=== PATIENT | male | born 1955 | race Caucasian/White ===

== ENCOUNTER 2019-10-03 08:31 | Outpatient (CLI) | payer MEDICARE, SELFPAY ==
[2019-10-03 09:12] LABS: Hemoglobin A1C 5.9 % (<5.7)
[2019-10-03 09:15] LABS: Blood Urea Nitrogen 13 mg/dL (9-20); Calcium 8.9 mg/dL (8.4-10.2); Carbon Dioxide 27 mmol/L (22-30); Chloride 103 mmol/L (98-107); Cholesterol 193 mg/dL (0-200); Estimated Glomerular Filt Rate > 60; Glucose 124 mg/dL (75-110); HDL Direct 48 mg/dL; Sodium 136 mmol/L (137-145); Triglycerides 76 mg/dL (<150)
[2019-10-03 09:26] LABS: LDL Cholesterol Direct 132 mg/dL
[2019-10-06 03:47] LABS: Homocysteine 9.9 umol/L (<11.4)
[2019-10-06 21:01] LABS: Vitamin D 1,25 (OH)2 Total 40 pg/mL (18-72); Vitamin D2 1,25 (OH)2 <8 pg/mL; Vitamin D3 1,25 (OH)2 40 pg/mL
== END 2019-10-03 08:32 | disposition home or self-care (01) ==
PROVIDERS: PCP Internal Medicine; Visit Provider Internal Medicine
DX: Z79.899 Other long term (current) drug therapy (principal); E55.9 Vitamin D deficiency, unspecified; R79.89 Other specified abnormal findings of blood chemistry; E78.5 Hyperlipidemia, unspecified
CPT/HCPCS: 36415; 80048; 80061; 82652; 83036; 83090

== ENCOUNTER 2021-02-02 12:52 | Outpatient (CLI) | payer MEDICARE, SELFPAY ==
--- NOTE | ~2021-02-02 | CT_ITS ---
EXAMINATION:CT diagnostic chest wo con DATE: 02/02/2021 13:14 INDICATION: Pleural plaque without asbestos. TECHNIQUE: Computed tomography (CT) of the chest was performed without intravenous contrast. Automate d exposure control and iterative reconstruction technique were employed. The dose-length product (DLP ) was 211.14 mGy-cm. COMPARISON: Chest CT 02/20/2018, 07/25/17, 05/27/11 FINDINGS: There is mild scarring at the lung apices. There are chronic centrilobular nodules and tree -in-bud opacities in left upper lobe. There is a staple line in left lower lobe. There are peripheral groundglass opacities in right lower lobe, likely atelectasis. No pleural effusion. The heart size i s normal. No pericardial effusion. There is a small sliding hiatal hernia. There are changes of magnolia cystectomy. There is severe cervical spondylosis and mild thoracic spondylosis. IMPRESSION: 1. Chronic findings of mild infection in left lung upper lobe. 2. Mild emphysema. 3. Small sliding hiatal hernia. Reviewed, dictated and finalized at location A.
== END 2021-02-02 12:53 | disposition home or self-care (01) ==
LOC: ANHIMG 12:55
PROVIDERS: PCP Internal Medicine; Visit Provider Internal Medicine
DX: R91.8 Other nonspecific abnormal finding of lung field (principal); J43.9 Emphysema, unspecified; K44.9 Diaphragmatic hernia without obstruction or gangrene
CPT/HCPCS: 71250

== ENCOUNTER 2021-11-11 12:25 | Outpatient (CLI) | payer MEDICARE, SELFPAY ==
--- NOTE | ~2021-11-11 | XR_ITS ---
XR chest 2V DATE: 11/11/2021 12:49 INDICATION: Pneumonia TECHNIQUE: PA and lateral views COMPARISON: 02/02/2021 CT chest 05/23/2017 two-view chest FINDINGS: There is left basilar infiltrate and/or atelectasis. There is minimal blunting of the costo phrenic angles. Small pleural effusions are not excluded. Heart size appears within normal range. No hilar or mediastinal enlargement. Mild bilateral apical capping. Air-fluid levels are noted in the small bowel and colon. Status post cholecystectomy. IMPRESSION: Left basilar infiltrate and/atelectasis Status post cholecystectomy Air-fluid levels are noted in the small bowel and colon. Reviewed, dictated and finalized at location B.
== END 2021-11-11 12:26 | disposition home or self-care (01) ==
PROVIDERS: PCP Internal Medicine; Visit Provider Internal Medicine
DX: J18.9 Pneumonia, unspecified organism (principal); R05.9 Cough, unspecified; Z90.49 Acquired absence of other specified parts of digestive tract; R91.8 Other nonspecific abnormal finding of lung field
CPT/HCPCS: 71046

== ENCOUNTER 2021-11-17 10:48 | Outpatient (CLI) | payer MEDICARE, SELFPAY ==
--- NOTE | ~2021-11-17 | XR_ITS ---
XR chest 2V 11/17/2021 11:03 Indication: Pneumonia. Procedure: 2 view chest Comparison: 11/11/2021 Findings: Heart size normal. Left basilar airspace disease may represent atelectasis, scarring or pne umonia. No significant change. No significant effusion. No pneumothorax. No acute osseous abnormality . Impression: 1: Stable left basilar airspace disease may represent atelectasis/scarring or pneumonia. Reviewed, dictated and finalized at location A. Impression: 1: Stable left basilar airspace disease may represent atelectasis/scarring or p neumonia.
== END 2021-11-17 10:49 | disposition home or self-care (01) ==
PROVIDERS: PCP Internal Medicine; Visit Provider Internal Medicine
DX: J18.9 Pneumonia, unspecified organism (principal); R05.9 Cough, unspecified; R06.00 Dyspnea, unspecified
CPT/HCPCS: 71046

== ENCOUNTER 2022-05-05 10:39 | Outpatient (CLI) | payer MEDICARE, SELFPAY ==
--- NOTE | ~2022-05-05 | XR_ITS ---
EXAMINATION: XR abdomen/kub 1V INDICATION: Unspecified renal colic TECHNIQUE: Supine views of the abdomen were obtained on 2 radiographs. COMPARISON: 10/05/2010 FINDINGS: A 6 mm stone projects in the expected location of the right mid ureter. There are stones me asuring 10 mm and 5 mm in the right kidney. There are punctate stones of the left kidney lower pole. The bowel gas pattern is normal. There is moderate osteoarthritis of the hips. IMPRESSION: 1. 6 mm stone projecting in the expected location of the right mid ureter. 2. Bilateral nephrolithiasis. Reviewed, dictated and finalized at location B. 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
[2022-05-05 11:14] LABS: Appearance Urine Clear (Clear); Color Urine Yellow (Yellow); Glucose Urine UA Negative (Negative); Ketones Urine Negative (Negative); Protein Urine 1+ mg/dL (Negative); Specific Grav Ur 1.025 (1.001-1.035)
[2022-05-05 11:15] LABS: Bilirubin Urine Negative (Negative); Blood Urine 2+ (Negative); Leukocyte Esterase Ur 1+ LEU/UL (Negative); Nitrate Urine Negative (Negative); Urobilinogen Urine 0.2 mg/dL (<2.0)
[2022-05-05 11:22] LABS: Bacteria Urine Trace /hpf; Mucus Urine Few /lpf; RBC Urine 21-50 /hpf (0-2); Squamous Epithelial Cell Urine Rare /hpf (Few); WBC Urine 31-50 /hpf
[2022-05-05 11:31] LABS: Add Urine Microscopic? YES
== END 2022-05-05 10:40 | disposition home or self-care (01) ==
LOC: ANHIMG 10:42
PROVIDERS: PCP Internal Medicine; Visit Provider Internal Medicine
DX: N23 Unspecified renal colic (principal); N20.2 Calculus of kidney with calculus of ureter
CPT/HCPCS: 74018; 81001; 87086

== ENCOUNTER 2022-05-12 12:04 | Outpatient (CLI) | payer MEDICARE, SELFPAY ==
--- NOTE | ~2022-05-12 | CT_ITS ---
EXAMINATION: CT abdomen pelvis wo con DATE: 05/12/2022 12:29 INDICATION: Nausea, vomiting, diarrhea. History of kidney stones. History of prostate cancer. TECHNIQUE: Computed tomography (CT) of the abdomen and pelvis was performed without intravenous contr ast. Automated exposure control and iterative reconstruction technique were employed. Exam dose: 220 .11 mGy-cm total exam DLP. COMPARISON: 05/12/2022 KUB FINDINGS: There is a suture line in the left lower lobe. The lung bases are clear of infiltrate or co nsolidation. Heart size is within normal range. No pericardial or pleural effusion. Small sliding hiatal hernia. Status post cholecystectomy. No hepatic, splenic, pancreatic or adrenal space-occupying mass lesion. No bile duct or pancreatic duct dilatation. Multiple probable right renal cyst. This is a limited non contrast examination. There are several contiguous lower pole right renal calculi measuring approximately 5-6 mm. There is a punctate mid right renal nonobstructing calculus. There is an approximately 3.5 x 5.2 mm right ureteral calculus at the L4 level with minimal proximal hydronephrosis. There are 2 lower pole left renal calculi measuring approximately 3-4 mm. There is a 6 x 9 mm obstructing calculus of the left ureter at the L5 level, with moderately prominen t proximal left hydroureteronephrosis. The prostate is mildly enlarged. The urinary bladder is unremarkable. There is mild atherosclerotic calcification and normal caliber of the abdominal aorta. No intraperito stevo or retroperitoneal or pelvic mass lesion or adenopathy or ascites. There is diverticulosis of the colon. No bowel obstruction, bowel wall thickening, pneumatosis or int raperitoneal free air is detected. Small fat-containing umbilical hernia. No suspicious osteolytic or osteoblastic lesions are noted. IMPRESSION: Bilateral ureteral obstructing calculi with mild right and moderately prominent left hyd ronephrosis Bilateral nonobstructive nephrolithiasis Probable right renal cysts Status post cholecystectomy Small sliding hiatal hernia Diverticulosis of the colon Reviewed, dictated and finalized at Location A. Reviewed, dictated and finalized at location B. ER CUTTER IMPRESSION: Bilateral ureteral obstructing calculi with mild right and moderat kristen prominent left hydronephrosis Bilateral nonobstructive nephrolithiasis Probable right renal cysts Status post cholecystectomy Small sliding hiatal hernia Diverticulosis of the colon
--- NOTE | ~2022-05-12 | XR_ITS ---
XR abdomen/kub 1V DATE: 05/12/2022 12:24 INDICATION: Kidney calculi TECHNIQUE: AP projection, 2 views COMPARISON: 05/05/2022 KUB 05/12/2022 CT abdomen pelvis FINDINGS: There is an approximately 5 mm calcified calculus of the right ureter at the L4 level. Ther e are several approximately 4-5 mm calcified calculi of the lower pole the right kidney. There are 2 small faint calcifications overlying the lower pole of the left kidney consistent with le ft nephrolithiasis. Approximately 5.5 x 13 mm calcified calculus of the left ureter is noted at the L5 level. The psoas shadows are intact. No visceromegaly is evident. There is no evidence of bowel obstruction. Surgical clips, right upper quadrant, consistent with cholecystectomy. IMPRESSION: Bilateral ureteral calcified calculi Bilateral nephrolithiasis Status post cholecystectomy Reviewed, dictated and finalized at Location A. Reviewed, dictated and finalized at location B. 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
== END 2022-05-12 12:05 | disposition home or self-care (01) ==
PROVIDERS: PCP Internal Medicine; Visit Provider Urology
DX: N20.2 Calculus of kidney with calculus of ureter (principal); Z90.49 Acquired absence of other specified parts of digestive tract; K57.30 Diverticulosis of large intestine without perforation or abscess without bleeding; K44.9 Diaphragmatic hernia without obstruction or gangrene; N28.1 Cyst of kidney, acquired
CPT/HCPCS: 74018; 74176

== ENCOUNTER 2022-05-14 02:13 | Day surgery (SDC) | payer MEDICARE, SELFPAY ==
[2022-05-13 08:35] VITALS: BMI 27.1
--- NOTE | 2022-05-13 08:41 | PC.NURSE ---
Report to the Outpatient Waiting Room, entrance under the green pavilion located off [facility], at time 0930 on date 05/14/22. Planned Procedure Time: 1130. Time changes happen often and if your time is changed the preop area will call you the afternoon before. - You and your visitor will be asked to self-screen and do not enter if you have any COVID symptoms. - Only one visitor is requested with a max of two and NO children visitors are allowed at this time. - The patient visitor may be requested to leave or wait in car when not with patient due to distancing restrictions. - A mask is optional within the hospital. Patients may have clear liquids (water, carbonated beverages, clear teas, apple juice) until 3 hours prior to surgery with a maximum of 20 ounces. - No food from midnight until time of surgery Take the following medications with a SIP of water the morning of surgery: NONE Medications to discontinue per physician: VITAMINS/SUPPLEMENTS Date to take last dose: NO MORE UNTIL AFTER SURGERY Please no make-up, nail telugu, hairspray, perfume, deodorant, or body powder the day of surgery. No jewelry (including any body piercings) or valuables the day of surgery, leave them at home. Please take a shower or bath the night before, or the morning of, surgery with an antibacterial soap. Wear comfortable, loose fitting clothing. - Jewelry must be removed prior to entering the operating room. Rings and piercings that are not removed may be cut off. - The hospital will not accept responsibility for valuables. - Please leave all valuables, including medications, at home the day of surgery. If you are going home after surgery, a licensed newspaper delivery driver must drive you home. - NO public transportation without another adult if you receive anesthesia. - We recommend that an adult stay with you for 24 hours following discharge. - We also recommend that you do not drive, make important decision, drink alcoholic beverages, or take any drugs that were not prescribed by your health care provider for at least 24 hours after your discharge time. Follow any additional instructions given to you from your surgeon. If you or anyone in your household have experienced Covid symptoms in the past week, please notify your surgeon or the nurse liaison at the phone number below for possible testing. Telephone instructions given to PT - CHILANGO PADILLA and asked if any additional questions and then verbalized understanding. Patient advised to call surgeon office or pre surgery nurse liaison [phone] if any additional questions.
[2022-05-14] VITALS (9 sets, daily range): BP systolic 122–174; BP diastolic 69–97; PULSE 57–81; RESP 12–16; TEMP 36.4–36.8; O2SAT 97–100
--- NOTE | ~2022-05-14 | XR_ITS ---
EXAMINATION: XR retrograde pyelo w/stent BI DATE: 05/14/2022 13:10 INDICATION: Bilateral ureteral stones. TECHNIQUE: 7 intraoperative fluoroscopic views of the abdomen and pelvis were obtained. I was not pre sent. Fluoroscopy exposure time was 34 seconds. COMPARISON: CT abdomen and pelvis 05/12/2022 FINDINGS: The skin former image demonstrates stones in both proximal ureters. Bilateral retrograde pyelogra ms demonstrate mild left hydronephrosis. The final images demonstrate bilateral internal ureteral herminia nts in expected positions. IMPRESSION: 1. Bilateral ureteral stones status post removal and placement of bilateral internal ureteral stents in expected positions. Reviewed, dictated and finalized at location A. 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 Bilateral ureteral stones status post removal and placement of bilateral int ernal ureteral stents in expected positions.
--- NOTE | 2022-05-14 11:17 | ECG_ITS ---
Measurements Intervals Pitman Rate: 60 P: 36 OR: 155 QRS: 2 QRSD: 91 T: 29 QT: 403 QTc: 404 Interpretive Statements SINUS RHYTHM NORMAL ECG NO PREVIOUS ECG AVAILABLE FOR COMPARISON Electronically Signed On 05-14-2022 12:06:33 SOCK DRIER by Valerio Lange D.O.
--- NOTE | 2022-05-14 11:38 | WPDHPUPDATE1 ---
History and Physical Update Update Date/Time: 05/14/22 11:38 History and Physical has been reviewed, including an updated exam of the patient. There are NO changes in the patient's condition. Risks, benefits, and alternatives have been discussed and questions answered. Patient agrees to proceed with procedure. Proceed with cysto, bilateral retrograde, bilateral ureteroscopy with laser, bilateral stent placement
--- NOTE | 2022-05-14 11:52 | WPDANESEPPF ---
Anes - Initial Pre Proc Eval Procedure: Operation Date: 05/14/22 13:00 Proposed Procedures p Cystoscopy, Bilateral Ureteroscopy, Bilateral Retrograde Pyelogram, Holmium Laser Procedure, Bilateral Ureteral Stent Placement - Jarred Lyon MD Date/Time: 05/14/22 11:52 Surgeon: Jarred Lyon MD Pre Op Diagnosis: bilat ureteral stones Patient Data Age: 66 Gender: M Height: 1.8 m Weight: 87.7 kg Last Vital Signs Temp 36.8 C 05/14/22 11:45 Pulse 64 05/14/22 11:45 Resp 14 05/14/22 11:45 BP 152/73 H 05/14/22 11:45 Pulse Ox 100 05/14/22 11:45 O2 Del Method Room Air 05/14/22 11:45 Allergies Allergy/AdvReac Type Severity Reaction Status Date / Time Iodine and Iodide Containing Allergy Unknown Anaphylaxis Verified 05/14/22 11:52 Produc Home Medications Medication Instructions Recorded Confirmed Type mecobalamin (vitamin B12) 1,000 1,000 mcg sublingual DAILY 07/17/19 05/13/22 History mcg disintegrating tablet,sublingual cholecalciferol (vitamin D3) 25 25 mcg PO DAILY 10/02/19 05/13/22 History mcg (1,000 unit) capsule omega-3 fatty acids 1,000 mg 2,000 mg PO BID 10/09/19 05/13/22 History capsule (Fish Oil Concentrate) fluticasone propionate 50 2 spray intranasal DAILY #16 grams 11/03/20 05/13/22 Rx mcg/actuation nasal spray,suspension rosuvastatin 10 mg tablet See Rx Instructions .Route 12/18/21 05/13/22 Rx .COMPLEX #100 tabs famotidine 40 mg tablet See Rx Instructions .Route 04/23/22 05/13/22 Rx .COMPLEX #100 tabs folic acid 1 mg tablet See Rx Instructions .Route 04/23/22 05/13/22 Rx .COMPLEX #100 tabs Patient hx anesthesia problems: none Family hx anesthesia problems: none Results Review: All pre-operative results and documents have been reviewed as part of the pre-operative evaluation. [facility] Past Medical History Medical History BMI 27.0-27.9,adult BMI 28.0-28.9,adult Dysphagia Elevated PSA Elevated serum homocysteine level Encounter for Medicare annual wellness exam Encounter for preventive health examination Encounter for routine adult health examination with abnormal findings Encounter for routine adult health examination without abnormal findings Encounter for special screening examination for neoplasm of prostate Follow up GERD (gastroesophageal reflux disease) Hiatal hernia History of kidney stones History of prostate cancer Hospital discharge follow-up Hx of colonic polyps Impingement syndrome of left shoulder Left foot pain Left knee DJD 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 VIK (obstructive sleep apnea) Prediabetes RLS (restless legs syndrome) Shortness of breath on exertion Sinus congestion Vitamin D deficiency Family History Family History Mother Family history of diabetes mellitus in first degree relative Family history of malignant neoplasm of urinary bladder Father Family history of heart disease in male family member before age 55 Social History Social History (Updated 04/13/22 @ 07:34 by Martita Leung [facility]) Smoking status: Never smoker Second hand tobacco smoke exposure: No Alcohol intake: never Substance use: never Substance use type: does not use Lack of Transportation: No Lack of Food: Never True Current Housing: I Have Housing Concerned About Future Housing: No Difficulty Paying Gas/Electric Bills: No Difficulty Paying for Meds: No Currently Unemployed: No Education: Associate Degree Difficulty w/ Childcare or Family Care: No Living arrangements: with family Occupation/Education: retired Gender identity (if verbalized by the patient): Male Spiritual care concerns: No Anes - Eval Final PreProcedure Day of Procedure 05/14/22 11:52 Patient weight: overweight Heart: regular rate and rhythm Lungs: clear to auscultation Airway: Mallampati sca
[2022-05-14] MEDS: LACTATED RINGERS 1,000 ML 30 ML IV CONT ×2 (11:56→13:15)
[2022-05-14] MEDS: ceFAZolin 2 GM/D5W 50 ML 2 GM/50 ML BAG IVPB (11:58)
[2022-05-14] MEDS: LIDOCAINE HCL 2% GEL UROJET 10 ML PKG MUCOUS MEM (11:58)
--- NOTE | 2022-05-14 13:11 | P.OP_ITS ---
Procedure Note - Detailed Date of Procedure 05/14/22 Pre-op Diagnosis bilat ureteral stones and right renal stones Post-op Diagnosis Same Procedure Performed Cystoscopy, bilateral retrogrades, bilateral ureteroscopy with laser, stone extr action, laser of right renal stones, bilateral ureteral stent placements 4.8 Kyrgyz contour Surgeon Jarred Lyon MD Anesthesia General Description of Procedure Patient is taken to the operative suite correctly identified. Once anesthesia was obtained was placed in dorsal lithotomy position and prepped and draped usual sterile fashion. Twenty-two Kyrgyz scope was inserted the bladder. There were no tumors noted. The left ureteral orifice was cannulated with a guidewire. We dilated the orifice with an 8/10 dilator. A rigid ureteral scope was inserted. The of the impacted left ureteral stone was visualized. Using a 200 micron fiber we used the Dc laser to essentially dust the stone. There were some smaller pieces that we were retrieved with an escape basket. Reinspection revealed no residual significant stone burden. Pyelogram was then performed. 4.8 Kyrgyz contour stent was then placed with the proximal end coiled in the left renal pelvis and the distal in the bladder. Attention was then given to the right ureter. Another guidewire was inserted into the right ureteral orifice. It was similarly dilated with an 8/10 dilator. Rigid ureteral scope was inserted the stone again was visualized. This 1 measured 5-6 mm. Using the same fiber we fragmented and dusted the stone. We did retrieve couple larger pieces and sent them for analysis. We then placed ureteral access sheath and placed a mini flexible ureteral scope into the kidney. He had some stones in the inferior pole. We were able to retroflex the scope but it still was somewhat difficult. We were able to dust some of the stone. There may be a small fragment that is left but it is sort of impacted in the calyx. At this point it was decided to terminate the procedure. Pyelogram was performed. 4.8 Kyrgyz contour stent was then placed with the proximal end in the renal pelvis distal in the bladder. Bladder is drained. 2% viscous lidocaine was inserted urethra patient is taken recovery stable condition. He will follow-up in a week's time for bilateral ureteral stent removal. Please send a copy of report to my office Estimated Blood Loss 0 Drains Yes Packing No Pathology Yes Complications No immediate complications Condition Stable Disposition PACU
== END 2022-05-14 15:26 | disposition home or self-care (01) ==
PROVIDERS: PCP Internal Medicine; Visit Provider Urology
PROC: (CPT 52352; principal; 2022-05-14 13:00)
DX: N13.2 Hydronephrosis with renal and ureteral calculous obstruction (principal); K21.9 Gastro-esophageal reflux disease without esophagitis; G47.33 Obstructive sleep apnea (adult) (pediatric); G25.81 Restless legs syndrome; E55.9 Vitamin D deficiency, unspecified; Z85.46 Personal history of malignant neoplasm of prostate
CPT/HCPCS: 52356; 52332; 52352; 36415; 51701; 74420; 80053; 81001; 82365; 85025; 87086; 88300; 93005; 99283; C1758; C1769; C1894; C2617; J0330; J0690; J1100; J2250; J2405; J2704; J3010; J7120

== ENCOUNTER 2022-05-14 22:24 | Emergency (ER) | payer MEDICARE, SELFPAY ==
[2022-05-14 22:26] VITALS: BP 166/93; PULSE 92; RESP 16; TEMP 36.9; O2SAT 100
[2022-05-14 22:43] LABS: Basophils Percent Auto 0.1 % (0.2-1.2); Hematocrit 45.4 % (42.0-52.0); Hemoglobin 15.7 g/dL (14.0-18.0); Immature Granulocyte Absolute 0.07 K/mm3 (0.00-0.031); Immature Granulocyte Percent A 0.5 % (0-0.5); Lymphocytes Absolute Auto 0.75 K/mm3 (0.9-3.2); Lymphocytes Percent Auto 5.4 % (18.3-44.2); Mean Corpuscular HGB Conc 34.6 g/dl (32-36); Mean Corpuscular Hemoglobin 32.6 pg (26-34); Mean Corpuscular Volume 94.2 fl (80-100); Mean Platelet Volume 12.1 fl (7.4-10.4); Monocytes Absolute Auto 0.2 K/mm3 (0.1-0.6); Monocytes Percent Auto 1.7 % (2.6-8.5); Neutrophils Absolute Auto 12.8 K/mm3 (1.3-6.7); Neutrophils Percent Auto 92.3 % (45.5-73.1); Platelet Count Result 189 k/mm3 (150-375); Red Blood Count 4.82 M/mm3 (4.6-6.20); Red Cell Distribution Width 12.2 % (11.5-14.5); White Blood Count 13.8 K/mm3 (4.5-10.0)
[2022-05-14 22:54] LABS: Alanine Aminotransferase 40 U/L (6-50); Albumin Level 4.6 g/dL (3.5-5.1); Alkaline Phosphatase 90 U/L (38-126); Anion Gap 10 mmol/L (8-16); Aspartate Amino Transferase 38 U/L (17-59); Bilirubin,Total 0.6 mg/dL (0.2-1.3); Blood Urea Nitrogen 16 mg/dL (9-20); Calcium 8.9 mg/dL (8.4-10.2); Carbon Dioxide 23 mmol/L (22-30); Chloride 98 mmol/L (98-107); Estimated CRCL calculation 56 ml/min; Estimated Glomerular Filt Rate 60; Glucose 282 mg/dL (65-110); Potassium 4.4 mmol/L (3.4-5.0); Sodium 131 mmol/L (137-145)
--- NOTE | 2022-05-15 00:16 | ED.MALEGU ---
HPI - Male Genitourinary General Chief complaint: Urogenital-Male Stated complaint: surgical complications Time Seen by Provider: 05/15/22 00:09 History of Present Illness HPI Narrative: 66-year-old male presents to the emergency room for evaluation of urinary retention. States earlier today he had bilateral ureteral stents placed at the urologist office. States has had 3 successful voids, with a fourth produced blood clots. Patient states that he has been unable to urinate since 945 this evening. Denies nausea vomiting diarrhea. Does admit to some suprapubic fullness. Related Data Home Medications Medication Instructions Recorded Confirmed mecobalamin (vitamin B12) 1,000 1,000 mcg sublingual DAILY 07/17/19 05/13/22 mcg disintegrating tablet,sublingual cholecalciferol (vitamin D3) 25 25 mcg PO DAILY 10/02/19 05/13/22 mcg (1,000 unit) capsule omega-3 fatty acids 1,000 mg 2,000 mg PO BID 10/09/19 05/13/22 capsule (Fish Oil Concentrate) Allergies Allergy/AdvReac Type Severity Reaction Status Date / Time Iodine and Iodide Containing Allergy Unknown Anaphylaxis Verified 05/14/22 11:52 Produc Review of Systems Review of Systems: CONSTITUTIONAL: Denies fever, chills, or sweats. EYES: Denies visual changes, redness, or discharge. ENT: Denies rhinorrhea, congestion, sore throat, or otalgia. CARDIOVASCULAR: Denies chest pain, palpitations, or edema. RESPIRATORY: Denies cough or dyspnea. GASTROINTESTINAL: Denies abdominal pain, nausea, vomiting, or diarrhea. GENITOURINARY: Reports hematuria and urinary retention SKIN: Denies rash or itching. MUSCULOSKELETAL: Denies back pain, joint pain, or myalgia. NEUROLOGIC: Denies headache, numbness, dizziness, or weakness. PSYCHIATRIC: Denies anxiety or depression. [facility] Past Medical History Medical History BMI 27.0-27.9,adult BMI 28.0-28.9,adult Dysphagia Elevated PSA Elevated serum homocysteine level Encounter for Medicare annual wellness exam Encounter for preventive health examination Encounter for routine adult health examination with abnormal findings Encounter for routine adult health examination without abnormal findings Encounter for special screening examination for neoplasm of prostate Follow up GERD (gastroesophageal reflux disease) Hiatal hernia History of kidney stones History of prostate cancer Hospital discharge follow-up Hx of colonic polyps Impingement syndrome of left shoulder Left foot pain Left knee DJD On nursing home drug therapy VIK (obstructive sleep apnea) Prediabetes RLS (restless legs syndrome) Shortness of breath on exertion Sinus congestion Vitamin D deficiency Family History Family History Mother Family history of diabetes mellitus in first degree relative Family history of malignant neoplasm of urinary bladder Father Family history of heart disease in male family member before age 55 Social History Social History Smoking status: Never smoker Second hand tobacco smoke exposure: No Alcohol intake: never Substance use: never Substance use type: does not use Lack of Transportation: No Lack of Food: Never True Current Housing: I Have Housing Concerned About Future Housing: No Difficulty Paying Gas/Electric Bills: No Difficulty Paying for Meds: No Currently Unemployed: No Education: Associate Degree Difficulty w/ Childcare or Family Care: No Living arrangements: with family Occupation/Education: retired Gender identity (if verbalized by the patient): Male Spiritual care concerns: No Exam Narrative: GENERAL: Well-appearing, well-nourished, no physical limitations, and in no acute distress. HEAD: Normocephalic, atraumatic. EYES: Conjunctivae normal, PERRLA and EOMI. CHEST: Clear to auscultation. No respiratory distress. No w
[2022-05-15 01:20] LABS: Add Urine Microscopic? YES; Appearance Urine Turbid (Clear); Bilirubin Urine Negative (Negative); Blood Urine 3+ (Negative); Color Urine Red (Yellow); Glucose Urine UA 2+ mg/dL (Negative); Ketones Urine Negative (Negative); Leukocyte Esterase Ur Trace LEU/UL (Negative); Nitrate Urine Negative (Negative); Protein Urine 3+ mg/dL (Negative); Urobilinogen Urine 0.2 mg/dL (<2.0); pH Urine 6.5 (5.0-9.0)
[2022-05-15 01:34] VITALS: BP 132/74; PULSE 84; RESP 17; O2SAT 98
[2022-05-15 01:37] LABS: RBC Urine >75 /hpf (0-2); WBC Clumps Urine Present /HPF; WBC Urine >75 /hpf
== END 2022-05-15 03:42 | disposition home or self-care (01) ==
PROVIDERS: Emergency Medicine; Emergency Provider Nurse Practitioner Family; PCP Internal Medicine
DX: R31.9 Hematuria, unspecified (principal); N32.89 Other specified disorders of bladder; Z98.890 Other specified postprocedural states; Z85.46 Personal history of malignant neoplasm of prostate
CPT/HCPCS: 36415; 51701; 80053; 81001; 85025; 87086; 99283

== ENCOUNTER 2022-07-06 10:06 | Outpatient (CLI) | payer MEDICARE, SELFPAY ==
--- NOTE | ~2022-07-06 | XR_ITS ---
Supine views of the abdomen Clinical history: Renal stone, prior lithotripsy COMPARISON: 05/12/2022 Findings: Bowel gas pattern is nonspecific. No evidence for obstruction or free air. Questionable sma ll residual stones in the right kidney, significant smaller than as compared to prior exam. No defini te left-sided renal stone. Cholecystectomy clips noted. Osseous structures are intact. Impression: Questionable small residual stones in the right kidney, measuring up to approximately 2 mm. Reviewed, dictated and finalized at location . Impression: Questionable small residual stones in the right kidney, measuring up to approxi mately 2 mm.
== END 2022-07-06 10:07 | disposition home or self-care (01) ==
PROVIDERS: PCP Internal Medicine; Visit Provider Urology
DX: N20.0 Calculus of kidney (principal)
CPT/HCPCS: 74018

== ENCOUNTER 2022-10-14 01:04 | Day surgery (SDC) | payer MEDICARE, SELFPAY ==
[2022-10-11 08:33] VITALS: BMI 26.4
--- NOTE | 2022-10-13 20:33 | PM.HPGS ---
History of Present Illness History of Present Illness Consent: Risks, benefits, and alternatives have been discussed and questions answered. Patient agrees to proceed with procedure. Chief complaint: hemorrhage of anus and rectum Narrative: Kamran Briceno is a 67 year old male with bloodin his stool . For couple weeks he saw blood after a bowel movement. It. For while then started again. He has not had a change in bowel habits. He denies rectal pain. He has not been straining or constipated. The blood is primarily seen when he wipes himself after a bowel move Review of Systems Review of Systems: All systems reviewed & are unremarkable except as noted in HPI and below PMFSH Past Medical History Medical History BMI 26.0-26.9,adult BMI 27.0-27.9,adult BMI 28.0-28.9,adult Dysphagia Elevated PSA Elevated serum homocysteine level Encounter for Medicare annual wellness exam Encounter for preventive health examination Encounter for routine adult health examination with abnormal findings Encounter for routine adult health examination without abnormal findings Encounter for special screening examination for neoplasm of prostate Follow up GERD (gastroesophageal reflux disease) Hiatal hernia History of kidney stones History of prostate cancer Hospital discharge follow-up Hx of asbestos exposure Hx of colonic polyps Impingement syndrome of left shoulder Left foot pain Left knee DJD On halfway drug therapy VIK (obstructive sleep apnea) Prediabetes RLS (restless legs syndrome) Shortness of breath on exertion Sinus congestion Vitamin D deficiency Family History Family History Mother Family history of diabetes mellitus in first degree relative Family history of malignant neoplasm of urinary bladder Father Family history of heart disease in male family member before age 55 Social History Social History Smoking status: Never smoker Second hand tobacco smoke exposure: No Alcohol intake: never Substance use: never Substance use type: does not use Lack of Transportation: No Lack of Food: Never True Current Housing: I Have Housing Concerned About Future Housing: No Difficulty Paying Gas/Electric Bills: No Difficulty Paying for Meds: No Currently Unemployed: No Education: Associate Degree Difficulty w/ Childcare or Family Care: No Living arrangements: with family Occupation/Education: retired Gender identity (if verbalized by the patient): Male Spiritual care concerns: No Meds Home Medications and Allergies Home Medications Medication Instructions Recorded Confirmed Type mecobalamin (vitamin B12) 1,000 1,000 mcg sublingual DAILY 07/17/19 10/11/22 History mcg disintegrating tablet,sublingual cholecalciferol (vitamin D3) 25 25 mcg PO DAILY 10/02/19 10/11/22 History mcg (1,000 unit) capsule omega-3 fatty acids 1,000 mg 2,000 mg PO BID 10/09/19 10/11/22 History capsule (Fish Oil Concentrate) famotidine 40 mg tablet See Rx Instructions .Route 04/23/22 10/11/22 Rx .COMPLEX #100 tabs folic acid 1 mg tablet See Rx Instructions .Route 04/23/22 10/11/22 Rx .COMPLEX #100 tabs rosuvastatin 10 mg tablet See Rx Instructions .Route 10/04/22 10/11/22 Rx .COMPLEX #100 tabs Allergies Allergy/AdvReac Type Severity Reaction Status Date / Time Iodine and Iodide Containing Allergy Unknown Anaphylaxis Verified 10/14/22 08:41 Produc Exam Resp: Auscultation: clear to auscultation bilaterally Cardio: Rate: regular rate Rhythm: regular rhythm GI: GI Palp: Yes Soft to palpation and No Tenderness to palpation present (GI) Results Results Additional studies: Colonoscopy with possible biopsy or polypectomy or cautery or injection of substances.
[2022-10-14 08:47] VITALS: BP 132/76; PULSE 77; RESP 18; TEMP 36.3; O2SAT 99
[2022-10-14] MEDS: LACTATED RINGERS 1,000 ML 150 ML IV CONT (08:58)
--- NOTE | 2022-10-14 09:33 | WPDANESEPPF ---
Anes - Initial Pre Proc Eval Procedure: Operation Date: 10/14/22 10:00 Proposed Procedures p Colonoscopy - Jay Stanley MD Date/Time: 10/14/22 09:33 Surgeon: Jay Stanley MD Pre Op Diagnosis: hemorrhage of anus and rectum Patient Data Age: 67 Gender: M Height: 1.8 m Weight: 85.2 kg Last Vital Signs Temp 97.4 F L 10/14/22 08:47 Pulse 77 10/14/22 08:47 Resp 18 10/14/22 08:47 BP 132/76 10/14/22 08:47 Pulse Ox 99 10/14/22 08:47 O2 Del Method Room Air 10/14/22 08:47 Allergies Allergy/AdvReac Type Severity Reaction Status Date / Time Iodine and Iodide Containing Allergy Unknown Anaphylaxis Verified 10/14/22 08:41 Produc Home Medications Medication Instructions Recorded Confirmed Type mecobalamin (vitamin B12) 1,000 1,000 mcg sublingual DAILY 07/17/19 10/11/22 History mcg disintegrating tablet,sublingual cholecalciferol (vitamin D3) 25 25 mcg PO DAILY 10/02/19 10/11/22 History mcg (1,000 unit) capsule omega-3 fatty acids 1,000 mg 2,000 mg PO BID 10/09/19 10/11/22 History capsule (Fish Oil Concentrate) famotidine 40 mg tablet See Rx Instructions .Route 04/23/22 10/11/22 Rx .COMPLEX #100 tabs folic acid 1 mg tablet See Rx Instructions .Route 04/23/22 10/11/22 Rx .COMPLEX #100 tabs rosuvastatin 10 mg tablet See Rx Instructions .Route 10/04/22 10/11/22 Rx .COMPLEX #100 tabs Patient hx anesthesia problems: none Family hx anesthesia problems: none Results Review: All pre-operative results and documents have been reviewed as part of the pre-operative evaluation. [facility] Past Medical History Medical History BMI 26.0-26.9,adult BMI 27.0-27.9,adult BMI 28.0-28.9,adult Dysphagia Elevated PSA Elevated serum homocysteine level Encounter for Medicare annual wellness exam Encounter for preventive health examination Encounter for routine adult health examination with abnormal findings Encounter for routine adult health examination without abnormal findings Encounter for special screening examination for neoplasm of prostate Follow up GERD (gastroesophageal reflux disease) Hiatal hernia History of kidney stones History of prostate cancer Hospital discharge follow-up Hx of asbestos exposure Hx of colonic polyps Impingement syndrome of left shoulder Left foot pain Left 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 VIK (obstructive sleep apnea) Prediabetes RLS (restless legs syndrome) Shortness of breath on exertion Sinus congestion Vitamin D deficiency Family History Family History Mother Family history of diabetes mellitus in first degree relative Family history of malignant neoplasm of urinary bladder Father Family history of heart disease in male family member before age 55 Social History Social History Smoking status: Never smoker Second hand tobacco smoke exposure: No Alcohol intake: never Substance use: never Substance use type: does not use Lack of Transportation: No Lack of Food: Never True Current Housing: I Have Housing Concerned About Future Housing: No Difficulty Paying Gas/Electric Bills: No Difficulty Paying for Meds: No Currently Unemployed: No Education: Associate Degree Difficulty w/ Childcare or Family Care: No Living arrangements: with family Occupation/Education: retired Gender identity (if verbalized by the patient): Male Spiritual care concerns: No Anes - Eval Final PreProcedure Day of Procedure 10/14/22 09:33 Patient weight: normal Heart: regular rate and rhythm Lungs: clear to auscultation Airway: Mallampati scale class II Neurological: alert and oriented Last oral intake: >/= 8 hours ASA classification: III Emergent: no Anesthetic plan: proceed Anesthesia type and monitoring: general GIVS and standard monitoring Res
[2022-10-14 10:09] VITALS: BP 143/66; PULSE 75; RESP 25; O2SAT 100
[2022-10-14 10:19] VITALS: BP 123/75; PULSE 60; RESP 23; O2SAT 100
[2022-10-14 10:29] VITALS: BP 130/76; PULSE 56; RESP 21; O2SAT 100
== END 2022-10-14 10:39 | disposition home or self-care (01) ==
PROVIDERS: PCP Internal Medicine; Visit Provider Internal Medicine Gastroenterology
PROC: 0DJD8ZZ Inspection of Lower Intestinal Tract, Via Natural or Artificial Opening Endoscopic (ICD-10-PCS; CPT 45378; principal; 2022-10-14 10:00)
DX: Z12.11 Encounter for screening for malignant neoplasm of colon (principal); K64.8 Other hemorrhoids; K92.1 Melena; K21.9 Gastro-esophageal reflux disease without esophagitis; G47.33 Obstructive sleep apnea (adult) (pediatric); E55.9 Vitamin D deficiency, unspecified; Z85.46 Personal history of malignant neoplasm of prostate
CPT/HCPCS: G0121; J2704; J7120